=== PATIENT | female | born 1955 | race Caucasian/White ===

== ENCOUNTER 2025-09-06 13:13 | Inpatient (IN) ==
--- NOTE | 2025-09-06 13:41 | Emergency Department Note ---
Impression & Plan Acute hypoxic respiratory failure, SARS-CoV-2 positive, Leukocytosis ED Provider Note NAME: SHIVANI LYONS AGE: 69 SEX: F : 1955 ARRIVES VIA: Walk-In INFORMANT: Patient ED PROVIDER(S): Reed Hurt DO CHIEF COMPLAINT: Cough, congestion, fevers and short of breath HPI: Patient is a 69-year-old female with a past medical history of COPD who presents to the ER for upper respiratory symptoms, fevers and shortness of breath. Daughter notes that symptoms have been present for the past 3 weeks. They get slightly worse over the past week. She has been bringing up mucus and becoming more short of breath. She admits to sweats over the past 24 hours. No dysuria urgency or frequency. No belly pain. She does admit to pain in her left buttocks with coughing. ADDITIONAL HISTORY OBTAINED: Per HPI Chronic Medical/Social Conditions Affecting Care: Per HPI PAST MEDICAL HISTORY:See Below PAST SURGICAL HISTORY:See Below FAMILY HISTORY:See Below SOCIAL HISTORY:See Below HOME MEDICATIONS:See Below ALLERGIES:See Below VITALS:See Below PHYSICAL EXAMINATION: GENERAL: Sitting up in bed, alert, disheveled, cachectic, intermittent cough EYE EXAM: normal conjunctiva. OROPHARYNX: no exudate, no erythema, lips, buccal mucosa, and tongue normal and mucous membranes are moist NECK: supple, no nuchal rigidity, no adenopathy, non-tender LUNGS: Clear to auscultation. Normal chest wall mechanics HEART: no murmurs, S1 normal and S2 normal ABDOMEN: abdomen soft, non-tender, normo-active bowel sounds, no masses, no rebound or guarding. BACK: Back is symmetrical on inspection and there is no deformity, no midline tenderness, no CVA tenderness. SKIN: no rashes and no bruising UPPER EXTREMITIES: upper extremities are grossly normal. LOWER EXTREMITIES: No pitting edema. Calves are equal bilaterally NEURO EXAM: Normal sensorium, cranial nerves II-XII grossly intact, normal speech, no gross weakness of arms, no gross weakness of legs. MEDICAL DECISION MAKING: Patient is a 69-year-old female who presents to the ER for upper respiratory symptoms and combination with shortness of breath. IV was established and blood work was obtained. Labs show a leukocytosis of 18,000. No significant anemia. BMP was fairly unremarkable. Troponin slightly elevated 18. COVID was positive. Patient was given steroids and neb treatments. Patient was on 2 L nasal cannula. Discussed case with the hospitalist for further evaluation management treatment. Consults/Care Managements Discussions: Per [facility] Triage Nursing notes reviewed. Limited review of prior medical records performed Vital Signs: reviewed and remarkable for hypoxic, tachycardic and febrile Differential diagnosis: Differential diagnosis includes etiologies such as sepsis, UTI, pneumonia, metabolic, electrolyte abnormalities, cardiac sources, intracerebral event, toxicologic, neurological, as well as others were entertained. ER treatment provided: See below Diagnostics interpreted by me include EKG and cardiac monitoring as listed below: -Cardiac Monitoring: An order was placed for continuous cardiac monitoring. The monitor shows a rate of 101 with sinus rhythm. -ECG: Sinus tachycardia rate of 102 Left axis QTc 466 -Laboratory studies:Interpreted by me as stated above in MDM and shown below. Imaging studies: Xrays: As interpreted by me: Portable AP upright 1 view of the chest shows no focal Lutrate CTs show: none Procedures:none Critical Care: I have personally spent 33 minutes of critical care time in the direct management of this patient. This includes bedside care, interpretation of diagnostic studies, and testing, discussion with consultants, patient, and family members, and other required patient management activities. This 33 minutes is in excess of all separately billable procedures. Past Med/Surg History Problem List (Updated 09/06/25 @ 19:32 by Reed Hurt DO) Leukocytosis (Acute) SARS-CoV-2 positive (Acute) Acute hypoxic respiratory failure (Acute) Social History Smoking Status: Former smoker Hx Alcohol Use: Yes Hx Substance Use: No Preferred Language: Faroese Actuarial Clerk Required: No Beliefs That Will Affect Care: None Current Living Situation: Alone Feels Safe at Home: Yes Assistive Devices: Denture - Lower and Glasses Allergies Allergies Allergy/AdvReac Type Severity Reaction Status Date / Time No Known Allergies Allergy Unverified 09/06/25 14:18 Home Meds Home Medications Medication Instructions Recorded Confirmed albuterol sulfate 90 mcg/actuation 1 inh inhalation DAILY PRN SOB 09/06/25 09/06/25 aerosol inhaler (Ventolin HFA) atorvastatin 10 mg tablet 10 mg PO DAILY 09/06/25 09/06/25 bisoprolol fumarate 5 mg tablet 2.5 mg PO DAILY 09/06/25 09/06/25 ramipril 2.5 mg capsule 2.5 mg PO DAILY 09/06/25 09/06/25 Results & Data (ED) Vital Signs Vital Signs - 24 hr 09/06/25 13:22 09/06/25 13:36 09/06/25 13:38 Temperature 37.7 C H Temperature Source Temporal Artery Scan Pulse Rate 108 H 105 H Pulse Rate [Left Finger] 103 H Respiratory Rate 22 12 Respiratory Effort / Characteristics Non-Labored Spontaneous Respiratory Depth Normal Shallow Respiratory Pattern Regular Blood Pressure 118/67 Blood Pressure [Right Arm] 138/84 Blood Pressure Mean 84 Blood Pressure Mean [Right Arm] 102 Pulse Oximetry 86 L 95 Oxygen Delivery Method Room Air Oxygen Flow Rate Sepsis Recent Fever Within 48 Hours Yes Sepsis New/Unexplained Change in Mental Status N/A Sepsis Action Taken by Nursing Physician Notified 09/06/25 14:00 Temperature Temperature Source Pulse Rate 96 H Pulse Rate [Left Finger] Respiratory Rate 24 Respiratory Effort / Characteristics Respiratory Depth Respiratory Pattern Blood Pressure Blood Pressure [Right Arm] Blood Pressure Mean Blood Pressure Mean [Right Arm] Pulse Oximetry 99 Oxygen Delivery Method Nasal Cannula Oxygen Flow Rate 2 Sepsis Recent Fever Within 48 Hours Sepsis New/Unexplained Change in Mental Status Sepsis Action Taken by Nursing Laboratory Data 09/06/25 13:38 09/06/25 13:38 Lab Results 09/06/25 09/06/25 09/06/25 Range/Units 13:38 13:48 13:52 WBC 18.56 H (4.8-10.8) K/ul RBC 5.01 (4.20-5.40) M/uL Hgb 14.6 (12.0-16.0) g/dL Hct 44.9 (37.0-47.0) % MCV 89.6 (80.0-100.0) fL MCH 29.1 (25.0-34.0) pg MCHC 32.5 (32.0-36.0) g/dL RDW Std Deviation 40.5 (36.4-46.3) fL RDW Coeff of Red 12.3 (11.5-14.5) % Plt Count 384 (130-400) K/uL MPV 10.4 (9.4-12.4) fL Immature Gran % (Auto) 1.1 % Neut % (Auto) 92.2 % Lymph % (Auto) 2.8 % Morrow % (Auto) 3.6 % Eos % (Auto) 0.1 % Baso % (Auto) 0.2 % Neut # (Auto) 17.13 H (1.40-6.50) K/uL Lymph # (Auto) 0.52 L (1.20-3.40) K/uL Morrow # (Auto) 0.66 H (0.11-0.59) K/uL Eos # (Auto) 0.02 (0.00-0.50) K/uL Baso # (Auto) 0.03 (0.00-0.20) K/uL Immature Gran # (Auto) 0.20 (0.01-0.20) K/uL Echinocytes 1+ Sodium 137 (136-145) mmol/L Potassium 3.8 (3.5-5.1) mmol/L Chloride 98 (98-107) mmol/L Carbon Dioxide 29 (21-32) mmol/L Anion Gap 10 (3-11) BUN 15 (6-23) mg/dl Creatinine 0.76 (0.6-1.2) mg/dl Est Cr Clr Drug Dosing 44.1 ml/min eGFR 85.83 BUN/Creatinine Ratio 19.7 (10-20) Glucose 124 H (70-99(Fasting)) mg/dl Lactate 2.0 (0.4-2.0) mmol/L Calcium 9.8 (8.6-10.3) mg/dl Magnesium 1.6 L (1.7-2.4) mg/dl Total Bilirubin 0.8 (0.2-1.0) mg/dl Direct Bilirubin 0.2 (0-0.2) mg/dl AST 17 (13-39) U/L ALT 13 (7-52) U/L Alkaline Phosphatase 124 H (34-104) U/L Troponin I High Sens 18.3 H (0-14) pg/ml Total Protein 8.2 (6.0-8.3) gm/dl Albumin 3.9 (3.4-5.0) gm/dl Procalcitonin 0.35 (0-0.5) ng/ml SARS-CoV-2 (PCR) POSITIVE A (Negative) Influenza Type A (PCR) Negative (Neg) Influenza Type B (PCR) Negative (Neg) RSV (RT-PCR) Negative (Neg) Administered Medications Benzonatate (Benzonatate 100 Mg Capsule) 100 mg PO TID [facility] Stop: 10/06/25 15:14 Last Admin: 09/06/25 16:05 Dose: 100 mg Documented By: pradip Lactated Ringer's (Lr) 1,000 mls @ 80 mls/hr IV .[id number] ABI Stop: 09/06/25 21:29 Last Admin: 09/06/25 18:39 Dose: 80 mls/hr Documented By: CANDICE Discontinued Medications Albuterol (Albut/Ipratrop 3mg/0.5mg Neb 3 Ml Vial) 6 ml NEB NOW STA; Protocol Stop: 09/06/25 13:39 Last Admin: 09/06/25 14:26 Dose: 6 ml Documented By: LISA Guaifenesin (Guaifenesin 600 Mg Tabcr) 1,200 mg PO Q12 ABI Stop: 10/06/25 14:29 Last Admin: 09/06/25 15:09 Dose: Not Given Documented By: KIERA Ceftriaxone Sodium (Rocephin) 2,000 mg in 50 mls @ 100 mls/hr IV NOW STA Stop: 09/06/25 14:07 Last Infusion: 09/06/25 14:40 Dose: Infused Documented By: Admin: 09/06/25 14:09 Dose: 100 mls/hr Documented By: LISA Azithromycin (Zithromax) 500 mg in 255 mls @ 127.5 mls/hr IV NOW ONE Stop: 09/06/25 15:37 Last Infusion: 09/06/25 16:56 Dose: Infused Documented By: pradip Admin: 09/06/25 14:17 Dose: 127.5 mls/hr Documented By: LISA Sodium Chloride (Nss) 500 mls @ 999 mls/hr IV .Q31M ONE Stop: 09/06/25 14:08 Last Infusion: 09/06/25 15:50 Dose: Infused Documented By: pradip Admin: 09/06/25 14:18 Dose: 999 mls/hr Documented By: LISA Magnesium Sulfate/Dextrose (Magnesium Sulfate / D5w) 1 gm in 100 mls @ 100 mls/hr IV Q1H ABI Stop: 09/06/25 16:26 Last Infusion: 09/06/25 17:50 Dose: Infused Documented By: pradip Admin: 09/06/25 16:34 Dose: 100 mls/hr Documented By: pradip Infusion: 09/06/25 16:16 Dose: Infused Documented By: pradip Admin: 09/06/25 15:16 Dose: 100 mls/hr Documented By: KIERA Remdesivir 200 mg/ Sodium (Chloride) 250 mls @ 125 mls/hr IV ONE STA Stop: 09/06/25 17:19 Last Infusion: 09/06/25 18:34 Dose: Infused Documented By: Admin: 09/06/25 16:06 Dose: 125 mls/hr Documented By: pradip Ioversol (Optiray 320 125ml) 115 ml IV ONCE ONE Stop: 09/06/25 15:36 Last Admin: 09/06/25 15:36 Dose: 115 ml Documented By: SHAW Methylprednisolone (Methylprednisolone 125 Mg/2 Ml Vial) 60 mg IV NOW STA Stop: 09/06/25 13:39 Last Admin: 09/06/25 14:09 Dose: 60 mg Documented By: LISA Morphine Sulfate (Morphine Sulfate 2 Mg/Ml Carp) 1 mg IV NOW STA Stop: 09/06/25 15:07 Last Admin: 09/06/25 15:21 Dose: 1 mg Documented By: KIERA Imaging Data Radiologist's Impression: Chest X-Ray 09/06/25 13:38 XR chest 1V portable CLINICAL HISTORY: Sepsis COMPARISON STUDY: None FINDINGS: There is prior CABG. Heart size and pulmonary vasculature are normal. Lungs are hyperexpanded suggesting emphysema. No consolidation or pleural effusion seen. No pneumothorax. IMPRESSION: No acute findings. ACT 112: Negative or not required by law. Electronically signed by: Yunior Leigh M.D. 09/06/2025 2:07 PM Discharge Plan Visit Data Chief Complaint: Cough Stated Complaint: 3RD WEEK OF COUGH/SOB/LT HIP PAIN ED Provider: Reed Hurt Discharge Problem: Acute hypoxic respiratory failure, SARS-CoV-2 positive, Leukocytosis Patient Disposition: Admitted As Inpatient Condition: Serious Discharge Instructions Interventions: ED Discharge Assessment Last Done: 09/06/25 16:50 Discharge Problem: Leukocytosis Qualifiers: Leukocytosis type: unspecified Qualified Code(s): D72.829 - Elevated white blood cell count, unspecified
[2025-09-06 13:58] LABS: Hematocrit (blood only) 44.9 % (37.0-47.0); Hemoglobin 14.6 g/dL (12.0-16.0); Mean Corpuscular Hemoglobin 29.1 pg (25.0-34.0); Mean Corpuscular Volume 89.6 fL (80.0-100.0); Platelet Count 384 K/uL (130-400); RDW Standard Deviation 40.5 fL (36.4-46.3); Red Blood Count 5.01 M/uL (4.20-5.40); White Blood Count 18.56 K/ul (4.8-10.8)
--- NOTE | 2025-09-06 14:08 | XRay Report ---
XR chest 1V portable CLINICAL HISTORY: Sepsis COMPARISON STUDY: None FINDINGS: There is prior CABG. Heart size and pulmonary vasculature are normal. Lungs are hyperexpand ed suggesting emphysema. No consolidation or pleural effusion seen. No pneumothorax. IMPRESSION: No acute findings. ACT 112: Negative or not required by law. Electronically signed by: Yunior Leigh M.D. 09/06/2025 2:07 PM
[2025-09-06] MEDS: cefTRIAXone SODIUM 2,000 MG/50 ML BAG IV STA (14:09)
[2025-09-06 14:14] LABS: Alanine Aminotransferase 13.0 U/L (7-52); Albumin Level 3.9 gm/dl (3.4-5.0); Alkaline Phosphatase 124.0 U/L (34-104); Anion Gap 10.0 (3-11); Bilirubin,Total 0.8 mg/dl (0.2-1.0); Blood Urea Nitrogen 15.0 mg/dl (6-23); Calcium 9.8 mg/dl (8.6-10.3); Carbon Dioxide 29.0 mmol/L (21-32); Chloride 98.0 mmol/L (98-107); Creatinine Clr Calc Pharmacy 44.1 ml/min; Glucose 124.0 mg/dl (70-99(Fasting)); Magnesium 1.6 mg/dl (1.7-2.4); Potassium 3.8 mmol/L (3.5-5.1); Sodium 137.0 mmol/L (136-145); Total Protein 8.2 gm/dl (6.0-8.3)
[2025-09-06 14:16] LABS: Immature Granulocytes # (auto) 0.20 K/uL (0.01-0.20); Immature Granulocytes % (auto) 1.1 %
[2025-09-06] MEDS: AZITHROMYCIN 500 MG/255 ML BAG IV ONE (14:17)
[2025-09-06] MEDS: SODIUM CHLORIDE 0.9% 500 ML IV ONE (14:18)
--- NOTE | 2025-09-06 14:25 | History & Physical Report ---
<Statement entered by Popeye Cruz, DO - 09/06/25 16:55> I have seen and examined the patient and have discussed the case with the advance practice provider. I have reviewed the advanced practitioner's documentation, and I agree with, and take responsibility for that plan of care. Patient with symptoms consistent with COVID bronchitis with hypoxia. With her history of COPD and lung cancer high risk for severe disease. Recommending remdesivir. With her mild hypoxia indicated for Decadron. Continue with other treatments as outlined below. Discussed with patient that with the evidence of severe COPD/emphysema on her chest imaging that she may benefit from an inhaler on a daily basis when she is discharged and follow-up with outpatient pulmonary. 15 minutes coordinating, documenting, and providing care for this patient excluding time spent by another provider/QHP. Date of Service September 06, 2025 Assessment & Plan (1) SARS-CoV-2 positive: (2) Acute hypoxic respiratory failure: Plan Patient is a 69y/o F with PMHx significant for COPD, lung cancer s/p chemotherapy and radiation in remission for approximately 20yrs, HTN, HLD, history of CVA with residual LLE paraesthesias and L foot drop and mitral valve replacement in 2014 who presented to the ED with her daughter, Bridgett, due to productive cough and increasing SOB over the past 3 weeks. SARS-CoV-2 positive Acute hypoxic respiratory failure: 86% on RA upon arrival, was placed on 2L NC initially. S/p 1hr-long Duoneb, IV Rocephin, IV Zithromax, 60mg IV Solu-Medrol and 0.5L IVF in ED. On RA at rest during my assessment with O2 sat in the low to mid 90s. 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 Not on any daily inhalers. Had been using rescue albuterol inhaler quite often with minimal improvement in breathing COMPUTER TYPESETTER. Notable leukocytosis at 18k however procalcitonin negative. CXR with no acute findings. Will check chest CT given duration of sx, h/o COPD. R/o PE as well however low suspicion of this. IV remdesivir, IV Decadron ordered. Hold off on further IV ABX for now as no clear bacterial source. Continue additional symptomatic management with scheduled nebs, pulmonary toileting, Tessalon Perles. Will avoid Mucinex for now as pt mentions significant GI upset with this. Possible sepsis Technically meets sepsis criteria given tachycardia, tachypnea, present source of infection - again favoring viral etiology given above. Blood cx obtained in ED, follow results. L hip pain -- primarily in L buttock, POA Ongoing x 1wk or so, worse with coughing fits. No known trauma/injury. Will give 1x dose of IV morphine for breakthrough pain control. Scheduled Tylenol thereafter. Likely referred pain however if no improvement in AM, would possibly consider XR of this area. Obtain PT/OT evals to determine if any DC needs. Hypomagnesemia: Repleted via IV in ED. Continue to monitor and replete PRN. Elevated troponin: Likely demand ischemia ISO above. EKG w/o acute ischemic changes. Follow trend. EKG with chest pain PRN. HLD: Continue statin therapy. HTN: S/p 0.5L IVF in ED with improvement in BP. Will give an additional 0.5L IVF for now. Resume BB, ACEi in AM as tolerated. DVT Prophylaxis: SQ heparin, SCDs/TEDs Code Status: FULL CODE Disposition: Admit to med/telemetry Patient seen in collaboration with Dr. Cruz. Please see addendum. I spent a total of 52 minutes coordinating, documenting, and providing care for this patient excluding time spent in the performance of separately billed services or time spent by another provider/QHP. This included personally reviewing all current laboratories and imaging studies, medical reconciliation, outpatient chart review and discussion with specialists. History of Present Illness Chief Complaint: Productive cough, increasing SOB Primary Care Provider: Naif Mcneill MD [[place], [place]] Patient is a 69y/o F with PMHx significant for COPD, lung cancer s/p chemotherapy and radiation in remission for approximately 20yrs, HTN, HLD, history of CVA with residual LLE paraesthesias and L foot drop and mitral valve replacement in 2014 who presented to the ED with her daughter, Bridgett, due to productive cough and increasing SOB over the past 3 weeks. Cough productive of yellow phlegm. No recorded fevers however does describe feeling significant myalgias, chills and sweats over the past week or so. Was initially experiencing some R-sided rib pain when the cough began but this seems to have resolved. She has, however, been experiencing significant L hip pain during her coughing spells for the past week or so. No known trauma or injury to this region. Denies any centralized chest pain. No supplemental O2 use COMPUTER TYPESETTER. Former smoker. Rare alcohol use. No known sick contacts. States her O2 saturation COMPUTER TYPESETTER is usually around 92% at rest COMPUTER TYPESETTER. Allergies Allergy/AdvReac Type Severity Reaction Status Date / Time No Known Allergies Allergy Unverified 09/06/25 14:18 Home Medications Medication Instructions Recorded Confirmed Type albuterol sulfate 90 mcg/actuation 1 inh inhalation DAILY PRN SOB 09/06/25 09/06/25 History aerosol inhaler (Ventolin HFA) atorvastatin 10 mg tablet 10 mg PO DAILY 09/06/25 09/06/25 History bisoprolol fumarate 5 mg tablet 2.5 mg PO DAILY 09/06/25 09/06/25 History ramipril 2.5 mg capsule 2.5 mg PO DAILY 09/06/25 09/06/25 History Past Med/Surg History Problem List (Updated 09/06/25 @ 15:30 by Allyson Gonzalez PA-C) SARS-CoV-2 positive Acute hypoxic respiratory failure Social History Smoking Status: Former smoker Preferred Language: Slovenian Feels Safe at Home: Yes Review of Systems Review of Systems: At least ten systems reviewed and negative, except as noted in the HPI. Physical Exam Physical Exam: General: NAD, sitting up in bed, A&Ox3, cachectic/frail elderly F, ill-appearing, daughter at bedside HEENT: Normocephalic, atraumatic, dry mucous membranes Respiratory: Mild tachypnea (RR 22), decreased breath sounds b/l, diffuse wheezing, saturating at 96% on RA at rest Cardiovascular: Tachycardic rate (112), regular rhythm, no BLE edema Abdomen/GI: Normal bowel sounds, soft, nontender to palpation in all quadrants Extremities/Musculoskeletal: Mild TTP over L buttock region, moves all extremities, extremities motor strength intact Neurologic: No overt focal deficits, CN's II-XI not formally tested but appear grossly intact bilaterally Results & Data Results & Data Vital Signs (Past 12 Hours) Vital Signs Temp Pulse Pulse Resp BP BP Pulse Ox 09/06/25 13:38 103 H 12 138/84 95 09/06/25 13:36 105 H 09/06/25 13:22 37.7 C H 108 H 22 118/67 86 L O2 Del Method 09/06/25 13:38 09/06/25 13:36 09/06/25 13:22 Room Air Laboratory Results Short CBC 09/06/25 Range/Units 13:38 WBC 18.56 H (4.8-10.8) K/ul Hgb 14.6 (12.0-16.0) g/dL Hct 44.9 (37.0-47.0) % Plt Count 384 (130-400) K/uL BMP 09/06/25 13:38 Sodium 137 Potassium 3.8 Chloride 98 Carbon Dioxide 29 BUN 15 Creatinine 0.76 Glucose 124 H Calcium 9.8 Liver Function 09/06/25 Range/Units 13:38 Total Bilirubin 0.8 (0.2-1.0) mg/dl Direct Bilirubin 0.2 (0-0.2) mg/dl AST 17 (13-39) U/L ALT 13 (7-52) U/L Alkaline Phosphatase 124 H (34-104) U/L Albumin 3.9 (3.4-5.0) gm/dl Diagnostic Findings Chest X-Ray 09/06/25 13:38 XR chest 1V portable CLINICAL HISTORY: Sepsis COMPARISON STUDY: None FINDINGS: There is prior CABG. Heart size and pulmonary vasculature are normal. Lungs are hyperexpanded suggesting emphysema. No consolidation or pleural effusion seen. No pneumothorax. IMPRESSION: No acute findings. ACT 112: Negative or not required by law. Electronically signed by: Yunior Leigh M.D. 09/06/2025 2:07 PM Medications Administered Azithromycin (Zithromax) 500 mg in 255 mls @ 127.5 mls/hr IV NOW ONE Stop: 09/06/25 15:37 Last Admin: 09/06/25 14:17 Dose: 127.5 mls/hr Documented By: LISA Discontinued Medications Albuterol (Albut/Ipratrop 3mg/0.5mg Neb 3 Ml Vial) 6 ml NEB NOW STA; Protocol Stop: 09/06/25 13:39 Last Admin: 09/06/25 14:26 Dose: 6 ml Documented By: LISA Ceftriaxone Sodium (Rocephin) 2,000 mg in 50 mls @ 100 mls/hr IV NOW STA Stop: 09/06/25 14:07 Last Admin: 09/06/25 14:09 Dose: 100 mls/hr Documented By: LISA Sodium Chloride (Nss) 500 mls @ 999 mls/hr IV .Q31M ONE Stop: 09/06/25 14:08 Last Admin: 09/06/25 14:18 Dose: 999 mls/hr Documented By: LISA Methylprednisolone (Methylprednisolone 125 Mg/2 Ml Vial) 60 mg IV NOW STA Stop: 09/06/25 13:39 Last Admin: 09/06/25 14:09 Dose: 60 mg Documented By: LISA
[2025-09-06] MEDS: ALBUT/IPRATROP 3MG/0.5MG NEB 3 ML VIAL NEB STA (14:26)
--- NOTE | 2025-09-06 15:00 | Electrocardiogram Report ---
Test Reason : Blood Pressure : */* mmHG Vent. Rate : 102 BPM Atrial Rate : 102 BPM P-R Int : 168 ms QRS Dur : 100 ms QT Int : 358 ms P-R-T Axes : 75 -51 95 degrees QTcB Int : 466 ms Sinus tachycardia with occasional Premature ventricular complexes Left axis deviation Minimal voltage criteria for LVH, may be normal variant Abnormal ECG No previous ECGs available Confirmed by Nickolas Hughes ([id number]) on 09/06/2025 3:00:21 PM Referred By: Confirmed By: Nickolas Hughes
[2025-09-06] MEDS: guaiFENesin 600 MG TABCR PO SCH (15:09)
[2025-09-06 15:13] LABS: Influenza A virus by PCR Negative (Neg); Influenza B virus by PCR Negative (Neg); SARS CoV2 RNA(COVID-19) Ceph POSITIVE (Negative)
[2025-09-06] MEDS: MAGNESIUM SULFATE / D5W 1 GM/100 ML BAG IV SCH (15:16)
[2025-09-06] MEDS: MoRPHine SULFATE 2 MG/ML CARP IV STA (15:21)
[2025-09-06] MEDS: OPTIRAY 320 125ml IV ONE (15:36)
[2025-09-06] MEDS: BENZONATATE 100 MG CAPSULE PO SCH (16:05)
[2025-09-06] MEDS: REMDESIVIR 200 MG in SODIUM CHLORIDE 0.9% 210 ML IV STA (16:06)
--- NOTE | 2025-09-06 16:06 | CT Scan Report ---
CT ANGIOGRAM OF THE CHEST CLINICAL HISTORY: Acute hypoxic respiratory failure. Covid. Evaluate for pulmonary embolus. History o f lung cancer. COMPARISON STUDY: Chest radiograph performed earlier today. TECHNIQUE: Following the IV administration of 115 cc of Optiray 320, CT angiogram of the chest was pe rformed from the upper abdomen to the thoracic inlet utilizing the pulmonary embolus protocol. Images are reviewed in the axial, sagittal, and coronal planes. 3-D MIPS images are created and assessed. I V contrast was administered without complication. A dose lowering technique was utilized adhering to the principles of ALARA. CT DOSE: 247.92 mGy.cm FINDINGS: No pulmonary emboli are identified. There is no thoracic aortic dissection. There are media n sternotomy wires. Size of the heart is normal. There is no pericardial effusion. There is no pneumo thorax. A trace left pleural effusion is noted. There is moderate upper lobe predominant emphysema. L eft paramediastinal opacity with volume loss is noted. Extensive secretions within the left lower lob e bronchus and segmental bronchi of the left lower lobe are noted with mucus plugging. Numerous irreg ular nodular densities within the left lower lobe are present. There is also a 7 mm groundglass nodul e within the left upper lobe on image 172. Note is also made of a 9 mm irregular density within the l eft upper lobe on image 144. Secretions are also noted within the bronchus intermedius. No suspicious lesions within the bony thorax are present. Left lung volume loss is chronic. IMPRESSION: 1. No pulmonary emboli identified. 2. Multiple small irregular left lower lobe nodular opacities and a 7 mm groundglass opacity within t he left upper lobe. The findings suggest an infectious process such as bronchopneumonia. Aspiration p neumonia is within the differential given extensive left lower lobe secretions. A follow-up chest CT in 2 months to ensure resolution is recommended. 3. Left paramediastinal opacity with volume loss. This represents postradiation change. 4. 9 mm irregular left upper lobe nodular density. This may also be related to radiation therapy or a n infectious process. However, this should be assessed on follow-up exams to ensure stability/resolut ion. 5. No thoracic lymphadenopathy. ACT 112: Negative or not required by law. Electronically signed by: Eddie Chamberlain M.D. 09/06/2025 4:04 PM
[2025-09-06] MEDS ORDERED: ACETAMINOPHEN 325 MG TAB PO PRN (16:50)
[2025-09-06] MEDS ORDERED: MAGNESIUM HYDROXIDE SUSP 30 ML UDC PO PRN (16:50)
[2025-09-06] MEDS ORDERED: POLYETHYLENE (MIRALAX) 17 GM PACK PO PRN (16:50)
[2025-09-06] MEDS ORDERED: ONDANSETRON INJ 2 MG/ML 2 ML VIAL IV PRN (16:50)
[2025-09-06] MEDS: LACTATED RINGER'S 1,000 ML IV SCH (18:35)
[2025-09-06] MEDS: ACETAMINOPHEN 325 MG TAB PO SCH (19:58)
[2025-09-06] MEDS: HEPARIN SOD 5,000 UNIT/0.5 ML VIAL SQ SCH (20:05)
[2025-09-06] MEDS: SODIUM CHLOR 7% 4 ML NEB NEB SCH (20:19)
[2025-09-06] MEDS: ALBUT/IPRATROP 3MG/0.5MG NEB 3 ML VIAL NEB SCH (20:19)
[2025-09-07 03:22] LABS: Appearance Urine Clear (Clear); Bacteria Urine Automated None Seen (None Seen); Cast Urine Automated 0-2 /lpf (0-2); Glucose Urine UA Negative (Negative); RBC Urine Automated 0-2 /hpf (0-2); WBC Urine Automated 21-50 /hpf (0-5)
[2025-09-07 03:30] LABS: Hematocrit (blood only) 36.2 % (37.0-47.0); Hemoglobin 12.2 g/dL (12.0-16.0); Mean Corpuscular Hemoglobin 29.8 pg (25.0-34.0); Mean Corpuscular Volume 88.3 fL (80.0-100.0); Platelet Count 295 K/uL (130-400); RDW Standard Deviation 39.8 fL (36.4-46.3); Red Blood Count 4.10 M/uL (4.20-5.40); White Blood Count 17.38 K/ul (4.8-10.8)
[2025-09-07 03:46] LABS: Alanine Aminotransferase 13.0 U/L (7-52); Albumin Globulin Ratio 0.8 (0.9-2); Albumin Level 3.0 gm/dl (3.4-5.0); Alkaline Phosphatase 117.0 U/L (34-104); Anion Gap 8.0 (3-11); Bilirubin,Total 0.3 mg/dl (0.2-1.0); Blood Urea Nitrogen 13.0 mg/dl (6-23); Calcium 9.0 mg/dl (8.6-10.3); Carbon Dioxide 27.0 mmol/L (21-32); Chloride 101.0 mmol/L (98-107); Creatinine Clr Calc Pharmacy 59.0 ml/min; Globulin 3.6 gm/dl (2.5-4.0); Glucose 145.0 mg/dl (70-99(Fasting)); Magnesium 2.1 mg/dl (1.7-2.4); Potassium 3.9 mmol/L (3.5-5.1); Sodium 136.0 mmol/L (136-145); Total Protein 6.6 gm/dl (6.0-8.3)
[2025-09-07 04:03] LABS: Immature Granulocytes # (auto) 0.12 K/uL (0.01-0.20); Immature Granulocytes % (auto) 0.7 %; Polychromasia 1+
[2025-09-07] MEDS: dexAMETHasone 6 MG in SYRINGE 0 ML IV SCH (08:38)
[2025-09-07] MEDS: ATORVASTATIN 10 MG TAB PO SCH (08:38)
[2025-09-07] MEDS: ENALAPRIL MALEATE 5 MG TAB PO SCH (08:46)
[2025-09-07] MEDS: BISOPROLOL FUMARATE 5 MG TAB PO SCH (08:46)
[2025-09-07] MEDS ORDERED: predniSONE 20 MG TAB PO SCH (09:00)
[2025-09-07] MEDS: ADVANCED PROBIOTIC 625 MG CAPSULE PO SCH (12:07)
[2025-09-07] MEDS: DICLOFENAC SOD 1% GEL 100 GM TUBE EXT SCH (12:07)
[2025-09-07] MEDS: AZITHROMYCIN 250 MG TAB PO SCH (13:47)
[2025-09-07] MEDS: cefTRIAXone SODIUM 2,000 MG/50 ML BAG IV SCH (13:48)
--- NOTE | 2025-09-07 14:28 | Hospitalist Progress Note ---
Date of Service September 07, 2025 Assessment & Plan (1) SARS-CoV-2 positive: (2) Acute hypoxic respiratory failure: Plan 69y/o F with PMHx significant for COPD, lung cancer s/p chemotherapy and radiation in remission for approximately 20yrs, HTN, HLD, history of CVA with residual LLE paraesthesias and L foot drop and mitral valve replacement in 2014 who presented to the ED with her daughter, Bridgett, due to productive cough and increasing SOB over the past 3 weeks. SARS-CoV-2 positive Acute hypoxic respiratory failure: 86% on RA upon arrival and was noted to be in resp distress at presentation. Likely superimposed bacterial pneumonia Sepsis POA: Respiratory rate, heart rate elevated at presentation. Likely ISO superimposed bacterial pneumonia. Patient presents with 3-week symptoms of upper respite tract infection, reported sputum getting yellow in the last 1 week, noted to have low-grade fever in the ED. CTA chest negative for PE, positive for left-sided bronchopneumonia. Since she is few weeks away from her symptom onset, no role of remdesivir and dexamethasone. Will discontinue. Patient received azithromycin and ceftriaxone on 09/06 in the ED, continue. Follow admitting blood culture and sputum culture. c/w nebs as ordered. Continue with symptomatic management with pulmonary toileting and Tessalon Perles. Patient reports GI upset with Mucinex, will avoid. Left hip pain: Primarily in left buttock, worse with coughing fits. No known trauma or injury. Likely patient might have pulled muscle. Schedule diclofenac gel And Tylenol. Patient reports improving pain. PT/OT. Hypomagnesemia: Repleted, resolved. Elevated troponin: Likely demand ischemia in the setting of acute illness. EKG without acute ischemic changes. Patient denies chest pain. Continue telemonitoring. HLD: Continue home statin HTN: Blood pressure fairly under control, resume home medications. DVT prophylaxis: SQ heparin CODE STATUS: Full code pt's dtr was given phone call, left voice mail to call us back for gen update. Admission and Anticipated Discharge Date Admission Date: September 06, 2025 Subjective Patient was seen and examined at bedside. Patient was sitting up in chair, on 1 L oxygen via nasal cannula, NAD, resting comfortably. Patient reports she has been having upper respiratory tract infection since 3 weeks, and the first week she got some fever but she has not gotten any fever in the last 2 weeks prior to arrival. She reports in the last week prior to arrival her sputum started to become yellow. Patient denies any new sore throat or myalgia or new onset respiratory tract infection. Patient believes its continuation of her 3-week old respiratory tract infection. Patient denies diarrhea or nausea or vomiting, reports appetite around baseline. Physical Exam Physical Exam: General: NAD, sitting up in bed, A&Ox3, cachectic/frail elderly F, ill-appearing, on 1L NC O2 HEENT: Normocephalic, atraumatic, moist mucous membranes Respiratory: no wheeze, LLL crackles Cardiovascular: Tachycardic rate (90s), regular rhythm, no BLE edema Abdomen/GI: Normal bowel sounds, soft, nontender to palpation in all quadrants Extremities/Musculoskeletal: Mild TTP over L buttock region (pt reports improvement), moves all extremities, extremities motor strength intact Neurologic: No overt focal deficits, CN's II-XI not formally tested but appear grossly intact bilaterally Results & Data Results & Data Vital Signs (Past 12 Hours) Vital Signs Temp Pulse Pulse Resp BP Pulse Ox O2 Del Method 09/07/25 13:55 112 H 16 92 Nasal Cannula 09/07/25 10:46 Nasal Cannula 09/07/25 10:00 36.4 C L 113 H 18 119/63 94 Nasal Cannula 09/07/25 08:11 36.5 C 89 17 106/31 L 97 Nasal Cannula 09/07/25 07:48 91 H 16 97 Nasal Cannula 09/07/25 07:13 93 H 09/07/25 04:00 99 H O2 Flow Rate 09/07/25 13:55 1 09/07/25 10:46 1 09/07/25 10:00 1 09/07/25 08:11 1 09/07/25 07:48 2 09/07/25 07:13 09/07/25 04:00
[2025-09-07] MEDS ORDERED: REMDESIVIR 100 MG in SODIUM CHLORIDE 0.9% 230 ML IV SCH (15:30)
[2025-09-07] MEDS: SODIUM CHLORIDE 0.9% 500 ML IV SCH (19:21)
[2025-09-08 06:58] LABS: Hematocrit (blood only) 35.0 % (37.0-47.0); Hemoglobin 11.9 g/dL (12.0-16.0); Mean Corpuscular Hemoglobin 30.0 pg (25.0-34.0); Mean Corpuscular Volume 88.2 fL (80.0-100.0); Platelet Count 359 K/uL (130-400); RDW Standard Deviation 40.2 fL (36.4-46.3); Red Blood Count 3.97 M/uL (4.20-5.40); White Blood Count 20.17 K/ul (4.8-10.8)
[2025-09-08 07:29] LABS: Anion Gap 8.0 (3-11); Blood Urea Nitrogen 21.0 mg/dl (6-23); Calcium 8.8 mg/dl (8.6-10.3); Carbon Dioxide 29.0 mmol/L (21-32); Chloride 102.0 mmol/L (98-107); Creatinine Clr Calc Pharmacy 54.9 ml/min; Glucose 112.0 mg/dl (70-99(Fasting)); Magnesium 1.8 mg/dl (1.7-2.4); Potassium 4.0 mmol/L (3.5-5.1); Sodium 139.0 mmol/L (136-145)
[2025-09-08 12:23] VITALS: TEMP 97.7
[2025-09-08 12:24] VITALS: BP 101/55
--- NOTE | 2025-09-08 12:28 | Discharge Summary ---
Date of Service September 08, 2025 Admission HPI Per Admitting Provider Patient is a 69y/o F with PMHx significant for COPD, lung cancer s/p chemotherapy and radiation in remission for approximately 20yrs, HTN, HLD, history of CVA with residual LLE paraesthesias and L foot drop and mitral valve replacement in 2014 who presented to the ED with her daughter, Bridgett, due to productive cough and increasing SOB over the past 3 weeks. Cough productive of yellow phlegm. No recorded fevers however does describe feeling significant myalgias, chills and sweats over the past week or so. Was initially experiencing some R-sided rib pain when the cough began but this seems to have resolved. She has, however, been experiencing significant L hip pain during her coughing spells for the past week or so. No known trauma or injury to this region. Denies any centralized chest pain. No supplemental O2 use [employer]. Former smoker. Rare alcohol use. No known sick contacts. States her O2 saturation [employer] is usually around 92% at rest [employer]. Principal Diagnosis Pneumonia Discharge Data Allergies Allergy/AdvReac Type Severity Reaction Status Date / Time No Known Allergies Allergy Unverified 09/06/25 14:18 Consultations 09/06/25 14:22 ED Decision to Admit Stat Ordered Studies 09/06/25 15:12 CT angio chest PE protocol Stat Hospital Course (1) SARS-CoV-2 positive: (2) Acute hypoxic respiratory failure: Plan 69y/o F with PMHx significant for COPD, lung cancer s/p chemotherapy and radiation in remission for approximately 20yrs, HTN, HLD, history of CVA with residual LLE paraesthesias and L foot drop and mitral valve replacement in 2014 who presented to the ED with her daughter, Bridgett, due to productive cough and increasing SOB over the past 3 weeks. SARS-CoV-2 positive Acute hypoxic respiratory failure: 86% on RA upon arrival and was noted to be in resp distress at presentation. Likely superimposed bacterial pneumonia Sepsis POA: Respiratory rate, heart rate elevated at presentation. Likely ISO superimposed bacterial pneumonia. Patient presents with 3-week symptoms of upper respite tract infection, reported sputum getting yellow in the last 1 week, noted to have low-grade fever in the ED. CTA chest negative for PE, positive for left-sided bronchopneumonia. Patient was admitted to medical floor; was given antibiotic, supplemental oxygen, airway clearance therapy with improvement in shortness of breath. At the time of the discharge, two-step oxygen evaluation was done; patient needed supplemental oxygen on exertion. Patient was discharged on oral antibiotics; started on Spiriva given her history of COPD. Patient to follow-up with PCP and pulmonology as outpatient. Please note the above document was generated using voice recognition software. It may contain grammatical, syntax or spelling errors. Any formal questions or concerns about the content, text or information contained within the body of this dictation should be directly addressed to the provider for clarification Total Time Total Time Spent Total Time Spent (In Minutes): 45 Total Time Includes: Examination of the Patient, Discharge Planning, Medication Reconciliation, Communication With Other Providers and Other Discharge Plan Discharge Items Patient Disposition: Home - Self-Care Reason For Visit: ACUTE RESP FAILURE Discharge Diagnosis: SARS-CoV-2 positive Acute hypoxic respiratory failure: Likely superimposed bacterial pneumonia Condition on Discharge: Serious Activity: Resume your previous activity Non-emergency contact: Primary Care Provider Call non-emergency contact if: you have any medication questions and your symptoms worsen Follow-up/Referrals: Naif Mcneill MD [Primary Care Provider] - (Please make a follow up appo intment with your primary care provider in 1-2 weeks) Diet: Regular Addtl Attending Provider Instructions: You were admitted to the hospial with Covid infection and Pneumonia. You are prescribed following meds Take azithromycin 500mg once a day for 2 days Take Cefdinir 300mg twice a day for 3 days Start using daily inhaler with Spiriva. Please follow up with PCP and Pulmonology. If Spiriva is not covered by your insurance, please discuss with your PCP regarding another inhaler during follow up. Pending Studies at Discharge: No Stand-Alone Forms: [facility], [facility] Medications and DC Order Prescriptions: New azithromycin 250 mg Tablet 500 mg PO Q24H 2 Days Qty: 4 0RF Advanced Probiotic 625 mg (10 billion cell) Capsule 2 cap PO DAILY 3 Days Qty: 6 0RF cefdinir 300 mg capsule 300 mg PO BID 3 Days Qty: 6 0RF Spiriva Respimat 2.5 mcg/actuation mist 2 inh inhalation DAILY Qty: 4 0RF Continued atorvastatin 10 mg tablet 10 mg PO DAILY bisoprolol fumarate 5 mg tablet 2.5 mg PO DAILY ramipril 2.5 mg capsule 2.5 mg PO DAILY albuterol sulfate [Ventolin HFA] 90 mcg/actuation HFA aerosol inhaler 1 inh INHALATION DAILY PRN (Reason: SOB) Discharge Orders: Discharge Order (Routine); Ordered 09/08/25 Ordered By: Eric Herman Admission Data Admit Date/Time: 09/06/25 14:26 Attending Provider: Eric Herman Admit Provider: Popeye Cruz Primary Care Provider: Naif Mcneill Other Providers: Popeye Cruz Other Interventions: Discharge Summary Assessment (RN) Last Done: 09/08/25 12:54
[2025-09-08 13:17] VITALS: PULSE 95; RESP 18; O2SAT 91
== END 2025-09-08 15:33 | disposition home or self-care (01) | DRG 871 ==
LOC: ED 13:13 → EDINP 14:26 → SUATTDRO 14:26 → 2W 16:50